=== PATIENT | male | born 1950 | race Caucasian/White ===

== ENCOUNTER 2021-06-26 11:59 | Outpatient (CLI) | payer OTHER ==
--- NOTE | 2021-06-26 15:09 | Ultrasound Report ---
PROCEDURE: Bladder INDICATIONS: NOCTURIA COMPARISON: None. TECHNIQUE: Sonographic evaluation of the urinary bladder was performed. FINDINGS: KIDNEYS: Bilateral hydronephrosis. URINARY BLADDER: Prevoid volume: 481 mL. Post void volume: 570 mL. Both ureteral jets are visualized. OTHER: The prostate measures 3.8 x 3.9 x 5.3 cm IMPRESSION: 1.Bilateral hydronephrosis. 2.Increased urinary bladder volume during the examination. Findings were discussed with the ordering provider's physician casino assistant manager at the time of dictation. Reviewed by: Ministerio Bello MD on 06/26/2021 3:08 PM PST Approved by: Ministerio Bello MD on 06/26/2021 3:08 PM PST Station ID: [id number]
== END 2021-06-26 12:00 | disposition home or self-care (01) ==
LOC: DI 11:59
PROVIDERS: ATTEND Internal Medicine
DX: R35.1 Nocturia (principal); N13.30 Unspecified hydronephrosis

== ENCOUNTER 2021-07-11 12:08 | Outpatient (CLI) | payer OTHER ==
--- NOTE | 2021-07-11 18:10 | CT Report ---
PROCEDURE: Abdomen/Pelvis WO INDICATIONS: BILATERAL HYDRONEPHROSIS TECHNIQUE: Noncontrast 5 mm thick sections acquired from the diaphragms to the symphysis. 5 mm coronal and sagi ttal reformats were then performed. For radiation dose reduction, the following was used: automated exposure control, adjustment of mA and/or kV according to patient size. COMPARISON: Correlation is made with the prior ultrasound, 06/26/2021. FINDINGS: Image quality: Excellent. ABDOMEN: Lung bases: Lung bases are clear. Heart size is normal. Solid organs: Liver and spleen are normal in size. Gallbladder wall does not appear thickened. P ancreas is normal in contours. No adrenal nodules. There is moderate to prominent left-sided hydronephrosis, with a probably dilated left renal pelvis. No distal stone can be seen. There is no definite left-sided hydronephrosis or hydroureter. The kidneys demonstrate normal size. Peritoneum and bowel: Unenhanced bowel loops demonstrate normal wall thickness and caliber. No free fluid or air. A normal appendix is incidentally noted. Nodes and vessels: No retroperitoneal or mesenteric adenopathy by size criteria. Aorta and inferior vena cava are normal in caliber. Miscellaneous: No ventral hernias. PELVIS: Genitourinary: Mild generalized bladder wall thickening is seen. Miscellaneous: No inguinal adenopathy. Mild bilateral fat-containing inguinal hernias are seen, lef t larger than right. Bones: No suspicious bony lesions. No vertebral body compression fractures. Age-appropriate degene rative changes are seen. IMPRESSION: There is again seen moderate to prominent left-sided hydronephrosis, with a prominently dilated left renal pelvis. No distal stone can be seen. Please consider a distal stricture versus prominent reflux . No definite right-sided hydronephrosis is seen. The previously seen right-sided hydronephrosis is no longer seen. Mild generalized bladder wall thickening can be seen. Please consider bladder obstruction in a male p atient of this age. Incidental note is made of: Normal appendix Bilateral fat-containing inguinal hernias Reviewed by: Igor Crook MD on 07/11/2021 5:08 PM [place] Approved by: Igor Crook MD on 07/11/2021 5:08 PM [place] Station ID: [id number]
== END 2021-07-11 12:09 | disposition home or self-care (01) ==
LOC: DI 12:08
PROVIDERS: ATTEND Internal Medicine
DX: N13.30 Unspecified hydronephrosis (principal); N32.89 Other specified disorders of bladder